=== PATIENT | male | born 1960 | race Caucasian/White ===

== ENCOUNTER → 2017-02-19 | Day surgery (SDC) | payer OTHER ==
[~2017-02-19] MED LIST: ASPI325T PO; BUPIVACAINE HCL PF 0.5% 30 ML VIAL ONE; COMMODE; CPM; ENOX40P SQ; LACTATED RINGER'S 1000 ML INJ 1,000 ML ONE; LORTA5 PO; METO50TA PO; MIDAZOLAM HCL 2 MG/2 ML VIAL ONE; MORPHINE SULFATE 4 MG/ML INJ ONE; ONDANSETRON HCL 4 MG/2 ML VIAL IV PUSH ONE; PRAV20 PO; PROPOFOL 500 MG/50 ML BTL IV ONE; ST J81CH PO; Z.0.COMMODE-3:1; Z.0.CPM; Z.0.WALKERFRONT; [UNRECOGNIZED DRUG - OTHER]; ceFAZolin 2 GM PREMIX 50 ML ONE; oxyCODONE/ACETAMINOPHEN 5 MG/325 MG TAB ONE
--- NOTE | 2017-03-12 11:03 | MP ---
cc: WINNIE HERNANDEZ DATE OF SURGERY 02/19/[address] 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 POSTOPERATIVE DIAGNOSIS 1. Left second digit hammer toe contracture 2. Left extensor hallucis longus contracture 3. Left foot extensor hallucis longus contracture PATHOLOGY SENT none PROCEDURES PERFORMED 1. Left second digit hammertoe repair 2. left EHL on exam 3. Left hallucis flexor hallucis longus lengthening ANESTHESIA General HEMOSTASIS A pneumatic ankle tourniquet at 250 mmHg. ESTIMATED BLOOD LOSS Less than 10 mL INJECTABLES 10 cc of 0.5% Marcaine plain MATERIALS USED Included an assortment of FiberWire, 0.062 K-wires, 3-0 Monocryl, 3-0 Prolene COMPLICATIONS None INDICATIONS Mr. 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 He drags his toe and has difficulty walking. He had an MRI, but he could not stay still and the radiologist had difficulty visualizing the extensor tendon. However, it did appear intact. I cannot be sure if it is viable or if he will need a metatarsal-phalangeal joint fusion. He is agreeable to both and was consented for both, however I will try to avoid the fusion as he already has infused IPJ which is in a less than desirable position. PROCEDURE Under mild sedation, the patient was brought to the operating room and placed on the operating table in the supine position. Following IV sedation, a pneumatic ankle tourniquet was applied to the left ankle and the foot was then scrubbed, prepped and draped in the usual aseptic manner. Attention was directed to the dorsal aspect of the second PIPJ where a longitudinal incision was created, taken through skin and subcutaneous tissue with care being taken to identify and retract any vital neurovascular structures. The extensor tendon was transversely severed to allow access to the PIPJ joint even the opposing cartilaginous surfaces were then removed using a small oscillating saw. The digit was then realigned. The area was flushed with copious amounts of sterile saline and a retrograde 0.062 K-wire was inserted through all three phalanges. This did provide a rectus positioning of the digit which was confirmed under fluoroscopy, as well as pin placement. The area was again flushed with copious amounts of sterile saline. The tendons were reapproximated with 3-0 Monocryl, subcutaneous tissue was reapproximated with 3-0 Monocryl, skin was closed with 0 Prolene. Attention was then directed to the dorsal aspect of the left metatarsal-phalangeal joint where a linear longitudinal incision was created through the skin, deepened through skin and subcutaneous tissue with care being taken to identify and retract any vital neurovascular structure. The extensor hallucis longus tendon was visualized at the level of the joint, however, it had some signs of moderate to severe tendinosis and weakening of the tendon. The metatarsal-phalangeal joint was easily viewed and there was minimal to no disruption of the cartilage. At this point, it became obvious that the contracture was due to a tightly contracted flexor tendon and due to arthritic positioning of the joint. The incision was made to adjust the two tendons and avoid the fusion for the time-being. The extensor tendon, a Z-lengthening style cut was made, however, it was used to shorten and tighten the extensor tendon to allow for increased dorsiflexion, but before this could be obtained, the flexor tendon had to be lengthened as it maintained a strong plantar flexor pull on the digit. Attention was directed to the plantar aspect of the PIP joint where a similar incision was created as was made on the dorsal. The flexor tendon was severed at the MPJ level. It was noted to be bound in severe scar tissue, as much of which could be released, was released. It was loosely approximated in a lengthened positioned that allowed the toe to easily move freely throughout the range of motion. The extensor tendon was being reapproximated in a tightened position. Both tendons were sutured using FiberWire. The area was then flushed with copious amounts of sterile saline. Without any assistance, the toe set in a rectus position with only 2-4 degrees of plantar flexion noted. The deep and subcutaneous tissues were closed with 3-0 Monocryl, skin was closed with 3-0 Prolene. The pneumatic ankle tourniquet was released. There was a prompt hyperemic response to all digits of the left foot. A sterile dressing of Adaptic, 4x4s and a well-padded posterior splint were applied. The patient tolerated the procedure and the anesthesia well. She will recover in the PACU for a period time before being discharged home with written and oral postoperative instructions. Winnie RUGGIERO /8:24 AM /10:40 AM JODY
== END | disposition home or self-care (01) ==
LOC: ESDC 07:25
PROVIDERS: ATTEND Podiatrist Foot & Ankle Surgery
DX: M20.42 Other hammer toe(s) (acquired), left foot (principal); S93.122A Dislocation of metatarsophalangeal joint of left great toe, initial encounter; M24.575 Contracture, left foot
CPT/HCPCS: 01470; 01480; 28230; 28234; 28285; 73660; 76000; J0690; J2250; J2270; J2405; J3010; J7120

== ENCOUNTER → 2018-01-19 | Day surgery (SDC) | payer OTHER ==
[~2018-01-19] VITALS: Ht 185.4 cm; Wt 119.4 kg
[~2018-01-19] MED LIST changes: +*MEPERIDINE 25 MG INJ VIAL PERIprocedural Use ONLY ONE; +*morphine SULFATE 10 MG/ML PERIprocedure ONLY ONE; +ACETAMINOPHEN 1000 MG/100 ML 100 ML IV SCH; -ASPI325T PO; +ASPI81TA23 PO; -BUPIVACAINE HCL PF 0.5% 30 ML VIAL ONE; +BUPIVACAINE LIPOSOME PF 1.3% 20 ML VIAL ONE; +BUPIVACAINE/EPINEPHRINE 0.25% 50 ML VIAL ONE; +CHLO25TA2 PO; +CHLORHEXIDINE GLUCONATE 2 % 1 PACK (2 CLOTHS) TOPICAL PRN; -COMMODE; -CPM; +CYCL10TA PO; +DEXAMETHASONE SOD PHOS 4 MG/ML VIAL IV ONE; +DO NOT ADM ANY ANTICOAGULANT DRUGS PRN; -ENOX40P SQ; +FAT EMULSION 20% INJ 0 ML ONE; +GLYCOPYRROLATE 1 MG/5 ML SYRINGE IV PUSH ONE; +HYDROmorphone HCL PF 2 MG/ML VIAL ONE; +LACTATED RINGER'S 1000 ML INJ 1,000 ML IV ONE; -LACTATED RINGER'S 1000 ML INJ 1,000 ML ONE; +LACTATED RINGER'S 1000 ML IV PRN; +LIDOCAINE HCL 1% PF 5 ML AMPULE ONE; +LIDOCAINE HCL 1% PF 5 ML SYRINGE OTHER ONE; -LORTA5 PO; +METOPROLOL TARTRATE 25 MG TAB PO PRN; +MORPHINE SULFATE 4 MG/ML INJ IV PUSH PRN; -MORPHINE SULFATE 4 MG/ML INJ ONE; +NEOSTIGMINE 5 MG/5 ML SYRINGE IV PUSH ONE; +OMEP20TA93 PO; +ONDANSETRON HCL 4 MG/2 ML VIAL IV ONE; -ONDANSETRON HCL 4 MG/2 ML VIAL IV PUSH ONE; +ONDANSETRON HCL 4 MG/2 ML VIAL IV PUSH PRN; +PHENYLEPH/NS 1000 MCG/10 ML SYR IV ONE; +POVIDONE IODINE 5% (ANTISEPSIS KIT) 4 APPLICATIONS EACH NARE PRN; -PRAV20 PO; +PRAV20TA2 PO; +PROPOFOL 200 MG/20 ML AMP IV ONE; -PROPOFOL 500 MG/50 ML BTL IV ONE; +ROCURONIUM INJ 50 MG/5 ML SYRINGE IV PUSH ONE; +SODIUM CHLORID 0.9% 500 ML IV PRN; +SODIUM CHLORIDE 0.9% FLUSH 10 ML FLUSH IV FLUSH PRN; +SODIUM CHLORIDE 0.9% FLUSH 10 ML FLUSH IV FLUSH SCH; -ST J81CH PO; -Z.0.COMMODE-3:1; -Z.0.CPM; -Z.0.WALKERFRONT; -[UNRECOGNIZED DRUG - OTHER]; +ceFAZolin 2 GM PREMIX 50 ML IV SCH; -ceFAZolin 2 GM PREMIX 50 ML ONE; -oxyCODONE/ACETAMINOPHEN 5 MG/325 MG TAB ONE; +oxyCODONE/ACETAMINOPHEN 5 MG/325 MG TAB PO PRN
--- NOTE | 2018-01-19 10:44 | PD.OP ---
cc: Antonio Frost MD Operative Report Date of Surgery: Jan 19, 2018 Preoperative Diagnosis: (1) Ventral hernia Postoperative Diagnosis: (1) Ventral hernia Procedure: Laparoscopic repair of ventral hernia with mesh Anesthesia: LAURENCE Surgeon: Antonio Frost Aviation Electrical Technician(s): Lyudmila VIRAMONTES Operation and Findings: EBL: 10 cc Operative findings: The patient had multiple approximately 1 cm diameter ventral hernias in the midline from the umbilicus to 10 cm superior to the umbilicus. He had significant diastases recti. A 6 x 8" Ventra light ST mesh was placed using the echo deployment system. Procedure in detail: The patient was taken to the operating room and placed in supine position. General endotracheal anesthesia was induced and the abdomen was prepped and draped in usual sterile fashion. Ioban was placed. Surgical timeout was performed to verify correct patient procedure and site. Local anesthetic was injected and skin as a cutaneous tissue in the left upper abdomen at the costal margin and a 12 mm incision made. Blunt dissection was carried out down to the underlying fascia which was sharply incised. The posterior muscle layers and peritoneum were bluntly entered. 12 mm balloon trocar was inserted and the abdomen insufflated to 15 mmHg with CO2 gas which the patient tolerated well. He was placed in slight Trendelenburg position. A 5 mm balloon port was placed in left lower abdomen the right upper abdomen and the right lower abdomen. Fatty tissue from the falciform ligament to about 5 cm inferior to the umbilicus was taken down carefully using the harmonic scalpel and the peritoneum taken down to about 5 or 8 cm lateral from midline. There was a proximal 1 cm umbilical hernia defect and pre-peritoneal fat was reduced from this defect. There were 3-4 other approximately 1 cm defects with incarcerated preperitoneal fat which was reduced from each of these. The total area including the defects was about 10 cm longitudinally in the midline from the umbilicus to 10 cm superior to the umbilicus. A 6 x 8" Ventra lite ST mesh was placed into the abdomen using the echo deployment system. It was inflated after a separate stab incision was made in the midline and the catheter brought up. The insufflation was reduced to 12 mmHg. The mesh was oriented vertically and secured using the secure strap tacker with at least 5 cm coverage around each fascial defect. The echo structure was removed. This is also secured randomly in the midportion so that the entire mesh was taut up against the abdominal wall. A portion of the peritoneum and fat was excised because it was hanging down into the abdominal cavity. This was removed using an Endo Catch bag. Inferiorly the fat associated with the median and medial umbilical ligaments was brought up over the inferior portion of the mesh and secured with the secure strap tackers. This point the mesh was in good position with wide coverage. There was good hemostasis. The trochars were removed and the abdomen allowed to desufflate. The fascia at the left upper quadrant incision closed in 2 layers with 0 Vicryl suture. Skin closed with subcuticular 4-0 Monocryl and Dermabond. Abdominal binder was applied. Antonio Frost MD Jan 19, 2018 10:44
[2018-01-19 11:55] VITALS: BP 122/76; PULSE 77; RESP 20; TEMP 97.3; O2SAT 96
== END | disposition home or self-care (01) ==
LOC: HSDC 05:30
PROVIDERS: ATTEND Surgery
DX: K43.6 Other and unspecified ventral hernia with obstruction, without gangrene (principal); M62.08 Separation of muscle (nontraumatic), other site; K22.70 Barrett's esophagus without dysplasia; I10 Essential (primary) hypertension; K21.9 Gastro-esophageal reflux disease without esophagitis; B18.2 Chronic viral hepatitis C; K74.60 Unspecified cirrhosis of liver; R76.8 Other specified abnormal immunological findings in serum; K75.4 Autoimmune hepatitis; K44.9 Diaphragmatic hernia without obstruction or gangrene; I25.2 Old myocardial infarction; E78.5 Hyperlipidemia, unspecified; K63.5 Polyp of colon; E66.9 Obesity, unspecified
CPT/HCPCS: 00752; 49653; 64486; C1781; C9290; J0131; J0690; J1100; J1170; J2175; J2250; J2270; J2370; J2405; J2710; J3010; J7120